=== PATIENT | female | born 1985 | race Caucasian/White ===

== ENCOUNTER → 2018-08-30 | Outpatient (CLI) | payer OTHER | LOC: CIMAGING 08:54 | PROVIDERS: ATTEND Family Medicine | DX: R10.11 Right upper quadrant pain (principal); N83.9 Noninflammatory disorder of ovary, fallopian tube and broad ligament, unspecified; R59.0 Localized enlarged lymph nodes; Z87.42 Personal history of other diseases of the female genital tract | CPT/HCPCS: 76700-PO; 76856-PO ==